=== PATIENT | female | born 1990 | race Caucasian/White ===

== ENCOUNTER → 2025-06-30 | Outpatient (CLI) | payer MEDICARE, MEDICAID, SELFPAY ==
--- NOTE | 2025-06-30 14:16 | RAD_ITS ---
PROCEDURE: LUMBAR SPINE 2 OR 3 VIEWS 06/30/2025 REASON FOR EXAM: LOW BACK PAIN TECHNIQUE: Procedure Code: RADSPLL Modality: DX Procedure: LUMBAR SPINE 3 VIEWS COMPARISON: None provided. 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 Left upper quadrant abdominal surgical clips are seen. A mild degree of gentle lumbar dextroscoliosis is noted. Mild degenerative changes of the lower lumbar spine noted, with possible mild L 5-S1 disc space narrowing. Mild mid to lower lumbar posterior facet hypertrophy is also seen. No evidence of spondylolysis or spondylolisthesis. Reading Location: [place] [id number]
[2025-06-30 15:15] LABS: Barbiturate Urine NEGATIVE (< 200 ng/mL); Benzodiazepine Urine NEGATIVE (< 200 ng/mL); PCP Urine NEGATIVE (< 25 ng/mL); THC Urine NEGATIVE (< 50 ng/mL)
== END | disposition home or self-care (01) ==
PROVIDERS: Referring Provider Anesthesiology Pain Medicine; Visit Provider Anesthesiology Pain Medicine
DX: F11.20 Opioid dependence, uncomplicated (principal); M54.50 Low back pain, unspecified
CPT/HCPCS: 72100; 80307